=== PATIENT | male | born 1980 | race Caucasian/White ===

== ENCOUNTER 2017-07-21 13:45 | Emergency (ER) | payer OTHER ==
[~2017-07-21] VITALS: Ht 167.6 cm; Wt 105.2 kg
--- NOTE | 2017-07-21 14:44 | Diagnostic Imaging Report ---
PROCEDURE: Frontal and lateral views of the chest. COMPARISON: None. INDICATIONS: CHEST PAIN X 3-4 WEEKS FINDINGS: Lines/tubes: None. Lungs: Left lower lobe airspace opacity. No parenchymal mass. Pleura: There is no pleural effusion or pneumothorax. Heart and mediastinum: The heart and the mediastinum are normal. Bones: No acute bony abnormality. IMPRESSION: Left lower lobe pneumonia. Dictated by: Dae Mark M.D. on 07/21/2017 at 14:53 Electronically approved by: Dae Mrak M.D. on 07/21/2017 at 14:53
[2017-07-21 15:31] LABS: BASOPHILS # (AUTO) 0.1 (0.0-0.1); BASOPHILS % 0.7 % (0.0-1.0); EOSINOPHILS # (AUTO) 0.1 (0.0-0.4); EOSINOPHILS % 0.9 % (0.0-6.0); HEMOGLOBIN 18.5 g/dL (14.0-18.0); LYMPHOCYTES % 26.3 % (18.0-39.1); MEAN CORPUSCULAR HEMOGLOBIN 33.9 pg (28-32); MEAN CORPUSCULAR HGB CONC 34.3 g/dL (31-35); MEAN CORPUSCULAR VOLUME 98.9 fL (81-99); MONOCYTES # (AUTO) 0.8 (0.2-0.8); MONOCYTES % 10.8 % (4.4-11.3); NEUTROPHILS # (AUTO) 4.5 (2.1-6.9); NEUTROPHILS % 60.5 % (38.7-80.0); PLATELET COUNT 206 x10e3/uL (140-360); RED BLOOD COUNT 5.46 x10e6/uL (4.3-5.7); RED CELL DISTRIBUTION WIDTH 13.2 % (11.7-14.4)
[2017-07-21 15:38] LABS: INR 0.95; PROTHROMBIN TIME 13.1 seconds (11.9-14.5)
[2017-07-21 15:39] LABS: PARTIAL THROMBOPLASTIN TIME 24.7 seconds (23.8-35.5)
[2017-07-21 15:45] LABS: ALANINE AMINOTRANSFERASE 94 IU/L (0-55); ALBUMIN 4.3 g/dL (3.5-5.0); ALKALINE PHOSPHATASE 116 IU/L (40-150); ANION GAP 13.2 mmol/L (8-16); BLOOD UREA NITROGEN 12 mg/dL (7-26); BUN/CREATININE RATIO 9 (6-25); CALCIUM 9.3 mg/dL (8.4-10.2); CARBON DIOXIDE 24 mmol/L (22-29); CHLORIDE 107 mmol/L (98-107); CREATINE KINASE 113 IU/L (30-200); CREATININE, SERUM 1.34 mg/dL (0.72-1.25); EST GLOMERULAR FILTRATION RATE > 60 ML/MIN (60-); GLUCOSE 97 mg/dL (74-118); POTASSIUM 4.2 mmol/L (3.5-5.1); SODIUM 140 mmol/L (136-145)
[2017-07-21 15:52] LABS: TROPONIN I 0.006 ng/mL (0-0.300)
[2017-07-21 16:12] LABS: FREE THYROXINE INDEX 1.2201 (1.4-3.8); T3 UPTAKE 28.31 % (22.50-37.00); THYROID STIMULATING HORMONE 1.64 uIU/mL (0.350-4.940)
[2017-07-21] MEDS ORDERED: CEFTRIAXONE SOD 1 GM VIAL IM ONE (16:45)
[2017-07-21] MEDS ORDERED: CEFTRIAXONE SOD 1 GM VIAL IV ONE (17:00)
[2017-07-21 18:14] VITALS: BP 156/79
== END 2017-07-21 18:41 | disposition home or self-care (01) ==
LOC: ER 13:45
DX: R07.89 Other chest pain (principal); J18.1 Lobar pneumonia, unspecified organism
CPT/HCPCS: 36415; 71020; 80053; 82550; 82553; 84436; 84443; 84479; 84484; 85025; 85379; 85610; 85730; 93005; 99284; J0696

== ENCOUNTER 2018-06-12 09:10 | Emergency (ER) | payer OTHER ==
[~2018-06-12] VITALS: Ht 170.2 cm; Wt 98.0 kg
--- OUTSIDE RECORDS SUMMARY | 2018-06-12 10:26 | XMS REPORT ---
Demographics Address [address] [place] [address] Preferred Language Unknown Marital Status Unknown Buddhist Affiliation Unknown Race Unknown Ethnic Group Unknown Author [facility] Address Unknown Phone Unavailable Care Team Providers Care Sales Commissions Analyst Name Role Phone NEAL Marjorie ALEXA Unavailable Unavailable Problems This patient has no known problems. Allergies, Adverse Reactions, Alerts This patient has no known allergies or adverse reactions. Medications This patient has no known medications. Results Test Description Test Time Test Comments Text Results Atomic Results Result Comments CHEST 2 VIEWS [place] [address] Patient Name: SOTO SERRANO MR #: [id number] : 1980 Age/Sex: 36/M Req #: [id number] Adm Physician: Ordered by: PATEL CORREA PRESS MACHINE FEEDER Report #: [id number] Location: ER Room/Bed: Procedure: [id number] DX/CHEST 2 VIEWS Exam Date: 07/21/17 Exam Time: 1440 REPORT STATUS: Signed PROCEDURE: Frontal and lateral views of the chest. COMPARISON: None. INDICATIONS: CHEST PAIN X 3-4 WEEKS FINDINGS: Lines/tubes: None. Lungs: Left lower lobe airspace opacity. No parenchymal mass. Pleura: There is no pleural effusion or pneumothorax. Heart and mediastinum: The heart and the mediastinum are normal. Bones: No acute bony abnormality. IMPRESSION: Left lower lobe pneumonia. Dictated by: Maribel Jackson M.D. on 07/21/2017 at 14:53 Electronically approved by: Maribel Jackson M.D. on 07/21/2017 at 14:53 Dictated By: MARIBEL JACKSON MD 52 Transcribed By: SHAMAR on 07/21/171452 COPY TO: PATEL CORREA NP
--- OUTSIDE RECORDS SUMMARY | 2018-06-12 10:26 | XMS REPORT ---
Author Author Admin, [place] Organization [facility] [place] [address] [place] [address] Phone Allergies, Adverse Reactions, Alerts Allergy Name Reaction Description Start Date Severity Status Provider No Known Allergies Xena Nelson MA Conditions or Problems Problem Name Problem Code Onset Date Status Entry Date Provider Comment Standard Description Annotate Vaccination against influenza V04.81 Active Jasbir Mcgee MEDICAL COMMUNICATION SPECIALIST-C Need for prophylactic vaccination and inoculation against influenza High cholesterol 272.0 Active Jasbir Mcgee MEDICAL COMMUNICATION SPECIALIST-C Pure hypercholesterolemia Generalized anxiety disorder 300.02 Active Fabricio Petersen MD Generalized anxiety disorder Erectile dysfunction 302.72 Active Naveen Durán FABRIC AND ACCESSORIES ESTIMATOR 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, UNSPECIFIED Active Fabricio Petersen MD Unspecified psychosis Steatosis of liver 571.8 Active Naveen Durán FABRIC AND ACCESSORIES ESTIMATOR Other chronic nonalcoholic liver disease Transaminases, serum, elevated 790.4 Active Naveen Durán FABRIC AND ACCESSORIES ESTIMATOR Nonspecific elevation of levels of transaminase or lactic acid dehydrogenase [LDH] Tachycardia, unspecified 785.0 Active Naveen Durán FABRIC AND ACCESSORIES ESTIMATOR Tachycardia, unspecified Myopia - OU 367.1 Active Ki Lozada OD Myopia Regular astigmatism, right eye 367.21 Active Ki Lozada OD Regular astigmatism DRUG ABUSE, 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 SMOKER 305.1 Active Dina Perez MD Tobacco use disorder 1 pack per day Hx of pneumonia ICD-V12.61 Inactive Jasbir Mcgee NP-C ANXIETY DISORDER, UNSPECIFIED Inactive Fabricio Petersen MD SCHIZOPHRENIA, MULT EPIS, CURR PART RMSN Inactive Fabricio Petersen MD Other vitreous opacities, bilateral 379.24 Inactive Chris Whitehead MD Other vitreous opacities Other vitreous opacities, bilateral ICD-379.24 Inactive Chris Whitehead MD VITREOUS FLOATERS 379.24 Inactive Chris Whitehead MD Other vitreous opacities VITREOUS FLOATERS ICD-379.24 Inactive Chris Whitehead MD Obesity ICD-278.00 Inactive Jasbir Mcgee NP-C ASTIGMATISM 367.20 Inactive Ki Lozada OD Astigmatism, unspecified MYOPIA 367.1 Inactive Ki Lozada OD Myopia VITREOUS FLOATERS 379.24 Inactive Chris Whitehead MD Other vitreous opacities VITREOUS FLOATERS ICD-379.24 Inactive Chris Whitehead MD ANXIETY DEPRESSION ICD-300.00 Inactive Jasbir Mcgee NP-C PREVENTIVE HEALTH CARE ICD-V70.0 Inactive Jasbir Mcgee NP-C SCHIZOPHRENIA ICD-295.90 Inactive Fabricio Petersen MD SEBORRHEIC DERMATITIS AIDS RELATED ICD-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.10 Inactive Jasbir Mcgee MEDICAL COMMUNICATION SPECIALIST-C Passive smoke exposure ICD-E869.4 Inactive Naveen SÁNCHEZ Hx of pneumonia V12.61 Resolved Jasbir Mcgee NP-C Personal history of pneumonia (recurrent) ANXIETY DISORDER, UNSPECIFIED Resolved Fabricio Petersen MD Anxiety state, unspecified SCHIZOPHRENIA, MULT EPIS, CURR PART RMSN Resolved Fabricio Petersen MD Unspecified schizophrenia, unspecified state Obesity 278.00 Resolved Jasbir Mcgee NP-C Obesity, unspecified ANXIETY DEPRESSION 300.00 Resolved Jasbir PHILLIPS Anxiety state, unspecified PREVENTIVE HEALTH CARE V70.0 Resolved Jasbir PHILLIPS Routine general medical examination at a health care facility SCHIZOPHRENIA 295.90 Resolved Fabricio Petersen MD Unspecified schizophrenia, unspecified state SEBORRHEIC DERMATITIS AIDS RELATED 690.10 Resolved Jasbir Mcgee NP-C Seborheic dermatitis, unspecified Passive smoke exposure E869.4 Resolved Naveen SÁNCHEZ Accidental poisoning from second-hand tobacco smoke Medication List Medication Instructions Start Date Stop Date Generic Name NDC Status Provider Patient Instruction OFF DEEP CHAND AERO DIRECTED DIETHYLTOLUAMIDE 54401892038 Active Jasbir STARRC Active NORTRIPTYLINE 50MG CAPSULES TAKE 2 CAPSULES BY MOUTH AT BEDTIME NORTRIPTYLINE HCL 01903173980 Active Fabricio Petersen MD Active ATORVASTATIN CALCIUM 10 MG ORAL TABLET Take one tablet by mouth once daily at bedtime ATORVASTATIN CALCIUM 25105522544 Active Jasbir Mcgee NP-C Active VIAGRA 100 MG ORAL TABLET Take one tablet by mouth 30 minutes before sex SILDENAFIL CITRATE 30621759561 Active Jasbir Mcgee NP-C Active METOPROLOL SUCCINATE ER 50 MG ORAL TABLET EXTENDED RELEASE 24 HOUR Take one tablet by mouth once daily METOPROLOL SUCCINATE 55675081705 Active Jasbir Mcgee NP-C Active DIAZEPAM 10 MG ORAL TABLET Take one tablet twice daily. DIAZEPAM 04010167566 Active Fabricio Petersen MD Active DESCOVY 200-25 MG ORAL TABLET Take one tablet by mouth once daily EMTRICITABINE-TENOFOVIR AF 88881815825 Active Jasbir Mcgee NP-C Active TIVICAY 50 MG ORAL TABLET Take one tablet by mouth once daily DOLUTEGRAVIR SODIUM 77810859566 Active Jasbir Mcgee NP-C Active SEROQUEL 400 MG ORAL TABLET take two at bedtime. QUETIAPINE FUMARATE 38339248778 Active Fabricio Petersen MD Active VALTREX 1 GM ORAL TABLET One tab By Mouth Twice a Day for 10 days VALTREX 1 GM ORAL TABLET 951084 VALACYCLOVIR HCL Inactive DESCOVY 200-25 MG ORAL TABLET One tab By Mouth Every Day DESCOVY 200-25 MG ORAL TABLET EMTRICITABINE-TENOFOVIR AF Inactive NORTRIPTYLINE HCL 50 MG ORAL CAPSULE Take two capsules at bedtime. NORTRIPTYLINE HCL 50 MG ORAL CAPSULE 237109 NORTRIPTYLINE HCL Inactive AMBIEN 10 MG ORAL TABLET Take one by mouth at bedtime as needed for sleep. AMBIEN 10 MG ORAL TABLET 264864 ZOLPIDEM TARTRATE Inactive EFFEXOR XR 75 MG ORAL CAPSULE EXTENDED RELEASE 24 HOUR one daily. EFFEXOR XR 75 MG ORAL CAPSULE EXTENDED RELEASE 24 HOUR VENLAFAXINE HCL Inactive VALIUM 5 MG ORAL TABLET one tablet twice a day. VALIUM 5 MG ORAL TABLET 542507 DIAZEPAM Inactive AMBIEN TABLET AMBIEN TABLET ZOLPIDEM TARTRATE TABS Inactive BACTRIM DS 800-160 MG ORAL TABLET 1 tab by mouth on Tuesday and Tuesday BACTRIM DS 800-160 MG ORAL TABLET 911642 TRIMETHOPRIM-SULFAMETHOXAZOLE Inactive EFFEXOR XR CAPSULE EXTENDED RELEASE 24 HOUR EFFEXOR XR CAPSULE EXTENDED RELEASE 24 HOUR VENLAFAXINE HCL [id number] Inactive HYDROCORTISONE 1 % EXTERNAL CREAM apply sparingly to affected area twice a day as needed for facial rash HYDROCORTISONE 1 % EXTERNAL CREAM 063058 HYDROCORTISONE Inactive SEROQUEL TABLET SEROQUEL TABLET QUETIAPINE FUMARATE TABS Inactive VALIUM TABLET VALIUM TABLET DIAZEPAM TABS Inactive VALTREX 1 GM ORAL TABLET One tab By Mouth Twice a Day for 10 days VALACYCLOVIR HCL 88955327006 No Longer Active Naveen SÁNCHEZ Active DESCOVY 200-25 MG ORAL TABLET One tab By Mouth Every Day EMTRICITABINE-TENOFOVIR AF 78242397300 No Longer Active Naveen SÁNCHEZ Active NORTRIPTYLINE HCL 50 MG ORAL CAPSULE Take two capsules at bedtime. NORTRIPTYLINE HCL 47171137559 No Longer Active Naveen SÁNCHEZ Active AMBIEN 10 MG ORAL TABLET Take one by mouth at bedtime as needed for sleep. ZOLPIDEM TARTRATE 95085650713 No Longer Active Fabricio Petersen MD Active DESCOVY (TAF 25/FTC 200) TABLET 1 by mouth daily No Longer Active Naveen SÁNCHEZ Active TRUVADA 200-300 MG ORAL TABLET 1 by mouth daily EMTRICITABINE-TENOFOVIR 59467267465 No Longer Active Naveen SÁNCHEZ Active EFFEXOR XR 75 MG ORAL CAPSULE EXTENDED RELEASE 24 HOUR one daily. VENLAFAXINE HCL 42965390370 No Longer Active Fabricio Petersen MD Active VALIUM 5 MG ORAL TABLET one tablet twice a day. DIAZEPAM 93757475252 No Longer Active Fabricio Petersen MD Active AMBIEN TABLET ZOLPIDEM TARTRATE TABS 20531320388 No Longer Active Fabricio Petersen MD Active BACTRIM DS 800-160 MG ORAL TABLET 1 tab by mouth on Tuesday and Tuesday TRIMETHOPRIM-SULFAMETHOXAZOLE 69325110622 No Longer Active Naveen SÁNCHEZ Active EFFEXOR XR CAPSULE EXTENDED RELEASE 24 HOUR VENLAFAXINE HCL [id number]-KHQ 77394929022 No Longer Active Fabricio Petersen MD Active HYDROCORTISONE 1 % EXTERNAL CREAM apply sparingly to affected area twice a day as needed for facial rash HYDROCORTISONE 56451011917 No Longer Active Naveen KAYEP Active SEROQUEL TABLET QUETIAPINE FUMARATE TABS 24832107808 No Longer Active Fabricio Petersen MD Active VALIUM TABLET DIAZEPAM TABS 65820075363 No Longer Active Fabricio Petersen MD Active Advance Directives Directive Description Start Date DISCUSSED - NO DECISION MADE Immunizations Vaccine Administration Date Value Standard Description influenza immunization (Flu Vax) has been administered given influenza virus vaccine, unspecified formulation pneumococcal immunization administered given pneumococcal polysaccharide vaccine, 23 valent PEDIATRIC PNEUMOCOCCAL VACCINE ([id number]) #1 given pneumococcal conjugate vaccine, 13 valent influenza immunization (Flu Vax) has been administered given influenza virus vaccine, unspecified formulation influenza immunization (Flu Vax) has been administered given influenza virus vaccine, unspecified formulation hepatitis B vaccine #3 given hepatitis B vaccine, unspecified formulation hepatitis B vaccine #2 given given hepatitis B vaccine, unspecified formulation hepatitis B vaccine #1 given given hepatitis B vaccine, unspecified formulation Vital Signs Date Name Value Unit Range Description blood pressure, diastolic 80 mm[Hg] BP benito blood pressure, systolic 120 mm[Hg] BP sys height E&M 67 [in_us] Bdy height pulse rate E&M 78 /min Heart rate respiratory rate E&M 16 /min Resp rate temperature E&M 98.4 [degF] Body temperature weight E&M 220 [lb_av] Weight Measured blood pressure, diastolic 81 mm[Hg] BP benito blood pressure, systolic 120 mm[Hg] BP sys height E&M 67 [in_us] Bdy height pulse rate E&M 103 /min Heart rate weight E&M 221.40 [lb_av] Weight Measured blood pressure, diastolic 84 mm[Hg] BP benito blood pressure, systolic 126 mm[Hg] BP sys height E&M 67 [in_us] Bdy height pulse rate E&M 93 /min Heart rate weight E&M 224 [lb_av] Weight Measured blood pressure, diastolic 87 mm[Hg] BP benito blood pressure, systolic 123 mm[Hg] BP sys height E&M 67 [in_us] Bdy height pulse rate E&M 65 /min Heart rate respiratory rate E&M 16 /min Resp rate temperature E&M 98.2 [degF] Body temperature weight E&M 219 [lb_av] Weight Measured blood pressure, diastolic 81 mm[Hg] BP benito blood pressure, systolic 116 mm[Hg] BP sys height E&M 67 [in_us] Bdy height pulse rate E&M 109 /min Heart rate weight E&M 227.80 [lb_av] Weight Measured blood pressure, diastolic 82 mm[Hg] BP benito blood pressure, systolic 126 mm[Hg] BP sys height E&M 67 [in_us] Bdy height pulse rate E&M 106 /min Heart rate weight E&M 230.80 [lb_av] Weight Measured blood pressure, diastolic 85 mm[Hg] BP benito blood pressure, systolic 126 mm[Hg] BP sys height E&M 67 [in_us] Bdy height pulse rate E&M 105 /min Heart rate weight E&M 229.40 [lb_av] Weight Measured blood pressure, diastolic 83 mm[Hg] BP benito blood pressure, systolic 122 mm[Hg] BP sys height E&M 67 [in_us] Bdy height pulse rate E&M 100 /min Heart rate temperature E&M 98.7 [degF] Body temperature weight E&M 231.40 [lb_av] Weight Measured blood pressure, diastolic 78 mm[Hg] BP benito blood pressure, systolic 141 mm[Hg] BP sys height E&M 67 [in_us] Bdy height pulse rate E&M 120 /min Heart rate weight E&M 232 [lb_av] Weight Measured Diagnostic Results Date Name Value Unit Range Description Lab Report: CD4/CD8 Ratio Profile, Comp. Metabolic Panel (14), Lipid Lua ... - Chemistry thyroid stimulating hormone, serum 1.290 u[iU]/mL 0.450-4.500 Lab Report: CD4/CD8 Ratio Profile, Comp. Metabolic Panel (14), Lipid Lua ... - Serology HIV-1 antibody, western blot, serum Reactive Non Reactive Lab Report: CD4/CD8 Ratio Profile, Comp. Metabolic Panel (14), Lipid Lua ... - Chemistry very low density lipoproteins 30 mg/dL 5-40 Lab Report: Lipid Panel, Testosterone,Free and Total, Hepatitis B Surf A ... - Chemistry testosterone, total 397 ng/dL 264-916 Lab Report: CD4/CD8 Ratio Profile, Comp. Metabolic Panel (14), Lipid Lua ... - Chemistry hepatitis B surface antigen Negative Negative Lab Report: RNA, Real Time PCR (Graph) - Chemistry HIV-1 RNA (log 10) 2.079 ywv65ldci/mL Lab Report: CD4/CD8 Ratio Profile, Comp. Metabolic Panel (14), Lipid Lua ... - Chemistry chloride, serum 101 mmol/L 96-106 Lab Report: GenoSure(R) MG, HIV GenoSure(R) MG - Serology HIV genotype result The HIV-1 GenoSure(R) MG for this specimen has been completed. Lab Report: CD4/CD8 Ratio Profile, Comp. Metabolic Panel (14), Lipid Lua ... - Microbiology hepatitis A antibody, total Positive Negative Lab Report: CD4/CD8 Ratio Profile, Comp. Metabolic Panel (14), Lipid Lua ... - Chemistry urea nitrogen, blood 10 mg/dL 6-20 Lab Report: CD4/CD8 Ratio Profile, Comp. Metabolic Panel (14), Lipid Lua ... - Serology HIV-1/HIV-2 Ab, serum Repeatedly Reactive Non Reactive Lab Report: QuantiFERON TB Gold (In Tube), QuantiFERON In Tube - Hematology Quantiferon Gold TB blood test for tuberculosis screening Negative Negative Lab Report: CD4/CD8 Ratio Profile, Comp. Metabolic Panel (14), Lipid Lua ... - Hematology mean corpuscular hemoglobin concentration, RBC 35.2 G/DL % 31.5-35.7 erythrocyte (RBC) count 4.98 X10E6/UL 10*6/mm3 4.14-5.80 Lab Report: CD4/CD8 Ratio Profile, Comp. Metabolic Panel (14), Lipid Lua ... - Serology hepatitis C antibody, serum <0.1 0.0-0.9 Lab Report: CD4/CD8 Ratio Profile, Comp. Metabolic Panel (14), Lipid Lua ... - Chemistry absolute CD8 462 450-418 9697/10/01 Absolute Neutrophils 2.6 X10E3/UL 10*3/uL 1.4-7.0 LDL cholesterol, serum 80 mg/dL 0-99 urea nitrogen/creatinine ratio, serum 8 9-20 Lab Report: CD4/CD8 Ratio Profile, Comp. Metabolic Panel (14), Lipid Lua ... - Hematology mean corpuscular volume, RBC 99 fL 79-97 Internal Correspondence: Pre-Visit Planning:F/U 01/13/17@2:15PM-confirmed - CC care hat steamer #1, name [facility] [place] Cline MD / JOEL Conway FNP / JOEL Puentes FNP / JOEL Fish MD / Lupis Philippe MA Lab Report: CD4/CD8 Ratio Profile, Comp. Metabolic Panel (14), Lipid Lua ... - Chemistry HDL cholesterol, serum 33 mg/dL >39 Lab Report: CD4/CD8 Ratio Profile, Comp. Metabolic Panel (14), Lipid Lua ... - Hematology monocytes as percent of blood leukocytes 12 % Not Estab. Lab Report: CD4/CD8 Ratio Profile, Comp. Metabolic Panel (14), Lipid Lua ... - Chemistry albumin/globulin ratio, serum 2.1 1.2-2.2 creatinine, serum 1.31 mg/dL 0.76-1.27 cholesterol, serum 143 mg/dL 432-130 7881/10/01 bilirubin, serum, total 0.3 mg/dL 0.0-1.2 Lab Report: CD4/CD8 Ratio Profile, Comp. Metabolic Panel (14), Lipid Lua ... - Hematology Eosinophil Absolute Count 0.1 X10E3/UL 10*3/uL 0.0-0.4 Lab Report: Chlamydia/GC Amplification - Lab chlamydia DNA probe Negative Negative Lab Report: CD4/CD8 Ratio Profile, Comp. Metabolic Panel (14), Lipid Lua ... - Chemistry aspartate aminotransferase (SGOT), serum 46 U/L 0-40 Lab Report: CD4/CD8 Ratio Profile, Comp. Metabolic Panel (14), Lipid Lua ... - Hematology red blood cell distribution width 13.3 % 12.3-15.4 Lab Report: CD4/CD8 Ratio Profile, Comp. Metabolic Panel (14), Lipid Lua ... - Chemistry B-12, serum 301 pg/mL 211-946 Lab Report: CD4/CD8 Ratio Profile, Comp. Metabolic Panel (14), Lipid Lua ... - Hematology leukocyte count, blood 4.1 X10E3/UL 10*3/mm3 3.4-10.8 Lab Report: CD4/CD8 Ratio Profile, Comp. Metabolic Panel (14), Lipid Lua ... - Chemistry potassium, serum 4.4 mmol/L 3.5-5.2 albumin, serum 4.7 g/dL 3.5-5.5 immature granulocytes, percentage of total cells, blood 0 % Not Estab. Lab Report: CD4/CD8 Ratio Profile, Comp. Metabolic Panel (14), Lipid Lua ... - Hematology lymphocyte count, blood, automated 1.0 X10E3/UL 10*3/mm3 0.7-3.1 hematocrit, blood 49.1 % 37.5-51.0 Lab Report: Chlamydia/GC Amplification - Microbiology Neisseria gonorrhoeae DNA probe Negative Negative Lab Report: CD4/CD8 Ratio Profile, Comp. Metabolic Panel (14), Lipid Lua ... - Chemistry sodium, serum 139 mmol/L 134-144 Lab Report: CD4/CD8 Ratio Profile, Comp. Metabolic Panel (14), Lipid Lua ... - Serology toxoplasma gondii antibody, IgG <3.0 0.0-5.9 Lab Report: CD4/CD8 Ratio Profile, Comp. Metabolic Panel (14), Lipid Lua ... - Hematology neutrophils as percent of blood leukocytes 62 % Not Estab. basophils as percent of blood leukocytes 0 % Not Estab. Internal Correspondence: Pre-Visit Planning 11/26/2014 @ 2:00pm Confirmed, - Other List of providers caring for patient Louise Cline MD, Jaspal Siu MD, Dina Perez MD, Kristian Soto FABRIC AND ACCESSORIES ESTIMATOR, Naveen Durán FABRIC AND ACCESSORIES ESTIMATOR, Jasbir Mcgee NP-C, Francy Rutledge MA, Armond Collins MA, Aziza Montana MA, Maribel Degroot MA, Patricia Castillo MA, Jamel Bray MA, Lupis Howell MA, Adelaida Mcmillan CTA, Sariah Louie CTA.] Lab Report: CD4/CD8 Ratio Profile, Comp. Metabolic Panel (14), Lipid Lua ... - Serology HIV-1RNA, serum, by PCR, quantitative 50 {Copies}/mL Lab Report: CD4/CD8 Ratio Profile, Comp. Metabolic Panel (14), Lipid Lua ... - Chemistry folate, serum 3.6 ng/mL >3.0 Lab Report: GenoSure(R) MG, HIV GenoSure(R) MG - Lab lamivudine, 3TC Sensitive Lab Report: CD4/CD8 Ratio Profile, Comp. Metabolic Panel (14), Lipid Lua ... - Toxicology HIV-2 antibodies, western blot Non Reactive Non Reactive Lab Report: CD4/CD8 Ratio Profile, Comp. Metabolic Panel (14), Lipid Lua ... - Serology rapid plasma reagin antibody, serum Non Reactive Non Reactive Lab Report: CD4/CD8 Ratio Profile, Comp. Metabolic Panel (14), Lipid Lua ... - Chemistry CD4/CD8 ratio 0.58 0.92-3.72 carbon dioxide, venous blood 22 mmol/L 20-29 Lab Report: CD4/CD8 Ratio Profile, Comp. Metabolic Panel (14), Lipid Lua ... - Serology hepatitis B core antibody, total Negative Negative Lab Report: CD4/CD8 Ratio Profile, Comp. Metabolic Panel (14), Lipid Lua ... - Chemistry triglyceride, serum, fasting 148 mg/dL 0-149 calcium, serum 9.5 mg/dL 8.7-10.2 alanine aminotransferase (SGPT), serum 82 U/L 0-44 Lab Report: CD4/CD8 Ratio Profile, Comp. Metabolic Panel (14), Lipid Lua ... - Hematology mean corpuscular hemoglobin, RBC 34.7 pg 26.6-33.0 Lab Report: CD4/CD8 Ratio Profile, Comp. Metabolic Panel (14), Lipid Lua ... - Chemistry protein, total, serum 6.9 g/dL 6.0-8.5 alkaline phosphatase, serum 115 U/L 39-117 Lab Report: CD4/CD8 Ratio Profile, Comp. Metabolic Panel (14), Lipid Lua ... - Hematology T-helper cells (CD4) as percent of blood lymphocytes 26.7 % 30.8-58.5 hemoglobin, blood 17.3 g/dL 13.0-17.7 T-suppressor cells (CD8) as percent of blood lymphocytes 46.2 % 12.0-35.5 lymphocytes as percent of blood leukocytes 25 % Not Estab. Lab Report: CD4/CD8 Ratio Profile, Comp. Metabolic Panel (14), Lipid Lua ... - Chemistry hemoglobin A1C, blood, as % of total hemoglobin 5.5 % 4.8-5.6 Lab Report: CD4/CD8 Ratio Profile, Comp. Metabolic Panel (14), Lipid Lua ... - Genetics/fertility eGFR if 80 mL/min/1.73m2 >59 Lab Report: CD4/CD8 Ratio Profile, Comp. Metabolic Panel (14), Lipid Lua ... - Hematology basophil count, absolute 0.0 x10E3/uL 0.0-0.2 Lab Report: GenoSure(R) MG, HIV GenoSure(R) MG - Lab didanosine, DDI Sensitive Lab Report: CD4/CD8 Ratio Profile, Comp. Metabolic Panel (14), Lipid Lua ... - Chemistry globulin, serum 2.2 1.5-4.5 Estimated Glomerular Filtration Rate (calc) 70 mL/min/1.73m2 >59 vitamin D 25-hydroxy, serum 40.8 ng/mL 30.0-100.0 Lab Report: Lipid Panel, Testosterone,Free and Total, Hepatitis B Surf A ... - Chemistry testosterone, serum, free 7.0 pg/mL 8.7-25.1 Lab Report: Lipid Panel, Testosterone,Free and Total, Hepatitis B Surf A ... - Serology hepatitis B surface antibody 53.5 Immunity>9.9 Lab Report: CD4/CD8 Ratio Profile, Comp. Metabolic Panel (14), Lipid Lua ... - Hematology eosinophils as percent of blood leukocytes 1 % Not Estab. Lab Report: CD4/CD8 Ratio Profile, Comp. Metabolic Panel (14), Lipid Lua ... - Chemistry blood glucose, random 96 mg/dL 65-99 Lab Report: CD4/CD8 Ratio Profile, Comp. Metabolic Panel (14), Lipid Lua ... - Hematology T-helper cells (CD4) count 267 /UL uL 359-1519 monocyte count, blood, automated 0.5 X10E3/UL 10*3/uL 0.1-0.9 platelet count 195 X10E3/UL 10*3/mm3 150-379 Encounters Date Encounter Provider Code Facility 11:12:35 CDT Est Patient Exp Problem - 35411 Jasbir Mcgee MEDICAL COMMUNICATION SPECIALIST-C CPT-73853 [facility] 10:19:00 CDT Est Patient Exp Problem - 75044 Fabricio Petersen MD CPT-48152 [facility] 10:24:50 CDT Est Patient Exp Problem - 17828 Fabricio Petersen MD CPT-21267 [facility] 09:53:08 CDT Est Patient Exp Problem - 84720 Jasbir Mcgee MEDICAL COMMUNICATION SPECIALIST-C CPT-21615 [facility] 12:48:43 CDT Est Patient Exp Problem - 80130 Fabricio Petersen MD CPT-69795 [facility] 13:07:25 CDT Est Patient Exp Problem - 16617 Fabricio Petersen MD CPT-28419 [facility] 11:22:34 CDT Est Patient Nurse - Only Visit - 69853 Lorelei Pablo RN CPT-65281 [facility] 11:44:20 SOA ARCHITECT Est Patient Exp Problem - 76643 Fabricio Petersen MD CPT-30909 [facility] 11:29:43 SOA ARCHITECT Est Patient Nurse - Only Visit - 21215 Lorelei Pablo RN CPT-64520 [facility] 10:32:03 SOA ARCHITECT Est Patient Exp Problem - 22056 Naveen KAYEP CPT-90331 [facility] 12:31:52 SOA ARCHITECT Est Patient Exp Problem - 27743 Fabricio Petersen MD CPT-80301 [facility] 10:36:16 SOA ARCHITECT Est Patient Exp Problem - 18439 Fabricio Petersen MD CPT-10907 [facility] 11:49:01 CDT Est Patient Exp Problem - 92353 Fabricio Petersen MD CPT-28804 [facility] 12:16:23 CDT Est Patient Exp Problem - 79211 Fabricio Petersen MD CPT-70248 [facility] 14:39:32 CDT Est Patient Exp Problem - 54346 Naveen KAYEP CPT-22589 [facility] 12:02:37 CDT Est Patient Exp Problem - 67992 Fabricio Petersen MD CPT-31767 [facility] 12:41:28 CDT Est Patient Exp Problem - 39481 Fabricio Petersen MD CPT-76442 [facility] 12:39:51 SOA ARCHITECT Est Patient Exp Problem - 12060 Naveen KAYEP CPT-95285 [facility] 12:49:27 SOA ARCHITECT Est Patient Exp Problem - 90058 Fabricio Petersen MD CPT-44743 [facility] 15:19:37 SOA ARCHITECT Est Patient Exp Problem - 24599 Naveen KAYEP CPT-44905 [facility] 13:20:44 SOA ARCHITECT Est Patient Exp Problem - 25954 Fabricio Petersen MD CPT-77797 [facility] 12:54:49 CDT Est Patient Exp Problem - 81442 Fabricio Petersen MD CPT-62665 [facility] 12:11:20 CDT Est Patient Exp Problem - 06287 Fabricio Petersen MD CPT-69139 [facility] 05:10:46 CDT Est Patient Problem Focus - 87294 Naveen KAYEP CPT-37062 [facility] 13:29:25 CDT Est Patient Exp Problem - 28874 Fabricio Petersen MD CPT-52095 [facility] 14:17:24 CDT Est Patient Exp Problem - 21556 Fabricio Petersen MD CPT-02721 [facility] 17:16:40 CDT Est Patient Problem Focus - 93053 Naveen SÁNCHEZ CPT-09950 [facility] 08:19:06 CDT Est Patient Problem Focus - 51631 Naveen Durán [facility] CPT-55016 [facility] 15:17:52 CDT Est Patient Exp Problem - 14160 Fabricio Petersen MD CPT-65063 [facility] 15:20:12 SOA ARCHITECT Est Patient Exp Problem - 25421 Fabricio Petersen MD CPT-62978 [facility] 12:33:28 SOA ARCHITECT Est Patient Problem Focus - 31050 Naveen Durán [facility] CPT-23740 [facility] 08:49:13 SOA ARCHITECT Est Patient Problem Focus - 24365 Naveen Durán [facility] CPT-90014 [facility] 14:46:36 SOA ARCHITECT Est Patient Exp Problem - [id number] Fabricio Petersen MD CPT-05628 [facility] 16:56:35 SOA ARCHITECT Est Patient Exp Problem - [id number] Naveen Durán [facility] CPT-47771 [facility] 14:58:20 CDT Est Patient Exp Problem - 41322 Fabricio Petersen MD CPT-73808 [facility] 13:43:35 CDT Est Patient Exp Problem - 16351 Fabricio Petersen MD CPT-28101 [facility] 16:43:25 CDT Est Patient Exp Problem - 48453 Naveen Durán [facility] CPT-09782 [facility] 13:32:32 CDT Est Patient Exp Problem - 00059 Fabricio Petersen MD CPT-62011 [facility] 13:14:45 CDT Est Patient Exp Problem - 82667 Fabricio Petersen MD CPT-39126 [facility] 13:54:59 SOA ARCHITECT Est Patient Exp Problem - 46881 Fabricio Petersen MD CPT-77136 [facility] 15:18:01 SOA ARCHITECT Est Patient Exp Problem - 57347 Fabricio Petersen MD CPT-36484 [facility] 14:24:14 SOA ARCHITECT Est Patient Exp Problem - 67901 Fabricio Petersen MD CPT-52860 [facility] 14:30:43 CDT Est Patient Exp Problem - 83223 Fabricio Petersen MD CPT-29942 [facility] 10:28:51 CDT Est Patient Problem Focus - [id number] Dina Perez MD CPT-68249 [facility] 14:37:16 CDT Est Patient Exp Problem - 30533 Fabricio Petersen MD CPT-17560 [facility] 14:47:19 CDT New Patient Exp Problem - [id number] Dina Perez MD CPT-98686 [facility] Procedures Code Procedure Name Date Entry Date Standard Description CPT-63808 INFLUENZA VACCINE QUADRIVALENT 3 YRS PLUS IM 11:56:56 CDT CPT-39942 Admin of Vaccine - Injection - 1 11:22:34 CDT CPT-62840 Pneumovax Vaccine PPSV23 11:22:34 CDT CPT-94397 Pneumovax Vaccine PPSV23 10:32:51 SOA ARCHITECT CPT-63443 Prevnar (PCV13) IM 11:29:44 SOA ARCHITECT CPT-14340 Admin of Vaccine - Injection - 1 11:29:44 SOA ARCHITECT CPT-12245 Prevnar (PCV13) IM 10:32:51 SOA ARCHITECT CPT-62743 INFLUENZA VACCINE QUADRIVALENT 3 YRS PLUS IM 10:32:51 SOA ARCHITECT CPT-67136 INFLUENZA VACCINE QUADRIVALENT 3 YRS PLUS IM 15:19:46 SOA ARCHITECT CPT-97427 Contact Insp/Mod (MODIFICAJ CONTACT LENX SPX SUPVJ ADAPTATION) 09:09:33 CDT CPT-35257 Est Patient Intermediate Opth - 52722 14:35:01 CDT CPT-87528 Contact Lens Fitting (RX&FITG C-LENS SUPVJ CRNL LENS OU XCPT APHK) 13:38:12 CDT CPT-20522 Est Patient Intermediate Opt - 22591 13:38:11 CDT CPT-82440 Hepatitis B - Adult 10:50:57 SOA ARCHITECT CPT-87788 Hepatitis B - Adult 10:50:57 SOA ARCHITECT CPT-00074 Hepatitis B - Adult 13:13:52 SOA ARCHITECT CPT-27417 Handling of specimen for transfer 14:17:18 CDT CPT-74306 Venipuncture 14:17:18 CDT CPT-32330 Dispensing Visit (UNLIVSTED OPHTHALMOLOGICAL SERVICE/PROCEDURE) 12:23:21 SOA ARCHITECT CPT-42922 Handling of specimen for transfer 09:57:20 SOA ARCHITECT CPT-02844 Venipuncture 09:57:20 SOA ARCHITECT CPT-11551 Dispensing Visit (UNLIVSTED OPHTHALMOLOGICAL SERVICE/PROCEDURE) 14:26:13 CDT CPT-93062 Est Patient Intermediate Opt - 56391 11:14:03 CDT CPT-90097 New Patient Intermediate Opt - 64533 10:44:54 CDT CPT-73300 Diagnostic evaluation with [facility] - 47323 12:46:24 CDT CPT-73053 Xray - Chest - PA & Lat - InHouse 14:14:54 CDT CPT-39948 Handling of specimen for transfer 11:19:06 SOA ARCHITECT CPT-02040 Venipuncture 11:19:06 SOA ARCHITECT
== END 2018-06-12 09:38 | disposition left against medical advice (07) ==
LOC: ER 09:10
DX: J02.9 Acute pharyngitis, unspecified (principal)